=== PATIENT | female | born 1950 | race Caucasian/White ===

== ENCOUNTER 2023-11-26 04:05 | Day surgery (SDC) | payer OTHER, BC ==
[2023-11-24 14:52] VITALS: BMI 28.8
[2023-11-26 06:23] VITALS: RESP 20
[2023-11-26] MEDS ORDERED: LIDOCAINE HCL 1%, 10 MG/ML (20ML VIAL) ONE (07:12)
[2023-11-26] MEDS ORDERED: BUPIVACAINE HCL/PF 0.25% (2.5MG/ML) 10 ML VIAL ONE (07:12)
[2023-11-26] MEDS ORDERED: MIDAZOLAM HCL 2 MG/2 ML SINGLE DOSE VIAL ONE (07:27)
[2023-11-26] MEDS ORDERED: FENTANYL CITRATE/PF 50 MCG/ML VIAL ONE ×3 (07:27→08:18)
[2023-11-26] MEDS ORDERED: ACETAMINOPHEN 1000 MG/100 ML BAG IVPB ONE (07:27)
[2023-11-26] MEDS ORDERED: DEXTROSE 5%-0.45% SALINE 1,000 ML IV SCH (07:30)
[2023-11-26] MEDS ORDERED: SUCCINYLCHOLINE CHLORIDE 200 MG/10 ML SYRINGE ONE (07:47)
[2023-11-26] MEDS ORDERED: PROPOFOL 20 ML ONE (07:49)
[2023-11-26] MEDS: CLINDAMYCIN 600 MG PREMIX BAG IVPB ONE (07:54)
[2023-11-26] MEDS: CLINDAMYCIN 900 MG PREMIX BAG IVPB ONE (07:54)
[2023-11-26] MEDS: LIDOCAINE HCL 1%, 10 MG/ML (50 mL VIAL) NR ONE ×2 (08:03)
[2023-11-26 08:54] VITALS: PULSE 93
[2023-11-26 10:13] VITALS: BP 120/61; TEMP 97.5
== END 2023-11-26 13:37 | disposition home or self-care (01) ==
LOC: JASU-SURG 04:05
PROVIDERS: ATTEND Urology
PROC: 01HY3MZ Insertion of Neurostimulator Lead into Peripheral Nerve, Percutaneous Approach (ICD-10-PCS; 2023-11-26)
PROC: 0JH70CZ Insertion of Single Array Rechargeable Stimulator Generator into Back Subcutaneous Tissue and Fascia, Open Approach (ICD-10-PCS; principal; 2023-11-26 07:30)
DX: N39.41 Urge incontinence (principal); N32.81 Overactive bladder; R35.0 Frequency of micturition
CPT/HCPCS: 64581; 64590; C1767; C1778; 76000-TC-FY; C1820; C1897